=== PATIENT | male | born 1965 | race Caucasian/White ===

== ENCOUNTER 2018-01-18 08:14 | Day surgery (SDC) | payer OTHER ==
[2018-01-16 14:23] VITALS: BMI 54.5
[2018-01-18] MEDS ORDERED: PROPOFOL 20 ML ONE (09:08)
--- NOTE | 2018-01-18 09:12 | HP ---
Satellite [facility] - Chief Complaint Chief Complaint: right knee pain - Past Medical History Allergies/Adverse Reactions: Allergies Allergy/AdvReac Type Severity Reaction Status Date / Time No Known Allergies Allergy Verified 01/18/18 08:36 - Current Medications Current Medications: Home Medications Medication Instructions Recorded Oxycodone HCl/Acetaminophen 1 - 2 tab PO Q6H #30 tab MDD 6 01/18/18 [Percocet 5-325 mg Tablet] Satellite Physical Exam - Physical Examination Vital Signs: Vital Signs Period Temp Pulse Resp BP Sys/Coto Pulse Ox Last 24 Hr 98.0 F 90 20 143/93 96 General Appearance: Well Nourished, Well Developed, Alert & Oriented x3 ENT: Clear Lung: Normal air movement Heart: Regular rate & rhythm Extremities: Other (right knee- + swelling, + ttp ,decr rom, nvi MRI + mt, djd) Neurological: Intact, Alert, Oriented Satellite Impression/Plan - Impression/Plan Impression: right knee internal derangement Operative Procedure: right knee arthroscopy Date to be Performed: 01/18/18
[2018-01-18] MEDS ORDERED: ceFAZolin SODIUM 1 GM VIAL ONE (09:13)
[2018-01-18] MEDS ORDERED: LIDOCAINE 1%/EPI 1:100000 (50 ML MULTI DOSE VIAL) PNB ONE (09:14)
[2018-01-18] MEDS ORDERED: ceFAZolin SODIUM 1 GM VIAL IVPB ONE (09:14)
[2018-01-18] MEDS ORDERED: BUPIVACAINE HCL/PF (5 MG/ML) 30 ML VIAL IJ ONE (09:14)
[2018-01-18] MEDS ORDERED: fentaNYL CITRATE 250 MCG/5 ML VIAL ONE (09:16)
--- NOTE | 2018-01-18 09:59 | OP ---
Operative Note - Note: Operative Date: 01/18/18 ([facility]) Pre-Operative Diagnosis: right knee internal derangement Operation: right knee arthroscopy with debridement chondroplasty [facility] [place] Post-Operative Diagnosis: Same as Pre-op Surgeon: Daniele Capps Anesthesiologist/SALES OFFICE ASSISTANT: Brianna Carrizales Anesthesia: General, Local Specimens Removed: shavings Estimated Blood Loss (mls): 5 Operative Report Dictated: Yes
[2018-01-18] MEDS ORDERED: ONDANSETRON 4 MG/2 ML VIAL IVPUSH PRN (10:03)
[2018-01-18] MEDS ORDERED: oxyCODONE HCL 5 MG TABLET PO PRN ×2 (10:03)
[2018-01-18] MEDS ORDERED: LACTATED RINGERS SOLUTION 1,000 ML IV SCH (10:15)
[2018-01-18] MEDS ORDERED: oxyCODONE HCL 5 MG TABLET ONE (13:23)
[2018-01-18 17:06] VITALS: BP 128/70; PULSE 70; TEMP 97.8
--- NOTE | 2018-01-21 16:18 | PATH ---
Surgical Pathology Report Patient Name: DONNIE DE LA ROSA [facility]. Rec. #: [id number] /Age/Gender: 1965 (Age: 52) / M Account: [id number] Location: [facility] Taken: 01/18/2018 Received: 01/18/2018 Reported: 01/21/2018 Physicians: Daniele Capps M.D. Specimen(s) Received RIGHT KNEE SHAVINGS Clinical History Tear right knee Final Diagnosis RIGHT KNEE SHAVINGS: FRAGMENTS OF SYNOVIAL AND FIBROCARTILAGINOUS TISSUE WITH DEGENERATIVE CHANGE. Electronically Signed Shefali Richards M.D. Gross Description Received in formalin, labeled "right knee shavings," is a 4.5 x 4.0 x 0.4 cm. aggregate of moran-yellow soft tissue fragments. A accounts receivable representative portion is submitted in one cassette. /01/18/2018 saudi01/18/2018
--- NOTE | 2018-01-24 09:20 | OP ---
DATE OF OPERATION: 01/18/2018 PREOPERATIVE DIAGNOSIS: Internal derangement, right knee. POSTOPERATIVE DIAGNOSIS: Internal derangement, right knee. PROCEDURE: Right knee arthroscopy with partial medial meniscectomy and chondroplasty of the medial femoral condyle. SURGICAL ATTENDING: Daniele Capps MD ANESTHESIA: General with endotracheal intubation. POSITION: Supine. CLOSURE: Nylon 4-0. COMPLICATIONS: None. CONDITION: To recovery room in stable condition. DESCRIPTION OF OPERATIVE PROCEDURE: Patient was taken to the operating room on January 18, 2018. General anesthesia with endotracheal intubation was administered by the anesthesiologist. The right lower extremity was prepped and draped in the usual sterile fashion. The medial and lateral portal sites were infiltrated with 1% Xylocaine with epinephrine. Both portals were then made with a 15-blade followed by a blunt trocar. The scope was placed up into the suprapatellar pouch. The knee was then inflated with a cocktail 10 mL of 1% Xylocaine, 10 mL of 0.5% Marcaine, and 20 mL of arthroscopic saline. The medication was allowed to sit in the knee for a minute or two, and then, the procedure was performed. Pouch was visualized to be clean. The medial and lateral gutters were visualized to be clean. The undersurface of the patella was found to be intact. The trochlea had some mild grade 1-2 changes, which was left untouched. With valgus stress on the knee, the medial compartment was entered. The medial meniscus was visualized and probed and found to have a flap tear of the posterior horn. This was debrided back to smooth and stable meniscal tissue with meniscal biter and arthroscopic shaver. The medial femoral condyle was run and found to have a quarter-sized lesion extending from about 30 degrees to 45 degrees, and a loose articular cartilage was debrided using the shaver. The bed was burred to stimulate some bleeding bone. The remaining of the medial femoral condyle articular cartilage was found to be intact. The tibial plateau was found to be intact. At 90 degrees, the ACL was visualized and probed and found to be intact. In the figure 4 position, the lateral compartment of the knee was entered. The lateral meniscus was visualized, probed, found to be intact. The lateral femoral condyle was run and found to be intact as was the lateral tibial plateau. Fluid was drained from the knee. The knee was then inflated with a cocktail of 20 mL of 0.5% Marcaine infused through the arthroscopic trocar. Both portals were then closed using 4-0 nylon. A sterile pressure dressing was placed over the knee. Patient was awakened from anesthesia and transferred to recovery in stable condition. No complications. Estimated blood loss negligible. Nik BRANDT/[id number]
== END 2018-01-18 14:30 | disposition home or self-care (01) ==
LOC: JASU-SURG 08:14
PROVIDERS: ATTEND Orthopaedic Surgery
PROC: 0SBC4ZZ Excision of Right Knee Joint, Percutaneous Endoscopic Approach (ICD-10-PCS; principal; 2018-01-18 09:30)
DX: M23.91 Unspecified internal derangement of right knee (principal)
CPT/HCPCS: 88304-TC; 94760; 97116-GP

== ENCOUNTER 2018-06-03 20:15 | Emergency (ER) | payer OTHER | END 2018-06-04 00:56 | disposition home or self-care (01) | LOC: JER 06-04 00:56 → JERFT 20:15 ==

== ENCOUNTER 2018-11-17 21:39 | Emergency (ER) | payer OTHER ==
--- NOTE | 2018-11-17 22:28 | PDOC ---
History of Present Illness - General Stated Complaint: LEG CRAMPS,HISTORY DVT Time Seen by Provider: 11/17/18 22:03 History Source: Patient Exam Limitations: No Limitations - History of Present Illness Initial Comments: 52 yo M, PMH back surgery in May c/b infection s/p washout and DVT s/p IVC filter, presenting from rehab center w/ L calf pain. His initial back surgery was due to L leg paralysis after a fall. He states that he had his IVC filter removed 2-3 weeks ago at his request. He said he had L calf pain starting night after his rehab session, described as a "tightness". Woke up Sunday night with pain still there and worse, exacerbated by moving his ankle. Feels different than his previous DVT, which felt "like my leg was going to pop ". Has residual L leg weakness. Received 1 dose of Eliquis before being sent over by doctor for US. Denies weakness, LOC, [facility], back pain, tingling, chest pain, back pain, SOB, constipation/diarrhea, fevers/chills. 11/17/18 22:15 11/17/18 22:32 Past History - Past Medical History Allergies/Adverse Reactions: Allergies Allergy/AdvReac Type Severity Reaction Status Date / Time No Known Allergies Allergy Verified 06/03/18 20:34 Home Medications: Ambulatory Orders Oxycodone HCl/Acetaminophen [Percocet 5-325 mg Tablet] 1 - 2 tab PO Q6H #30 tab MDD 6 01/18/18 Gabapentin [Neurontin] 300 mg PO ASDIR 06/03/18 Diazepam [Valium] 5 mg PO Q8H PRN #15 tablet MDD 3 06/04/18 Ibuprofen [Motrin -] 600 mg PO TID PRN #90 tablet MDD 3 06/04/18 Anemia: No Asthma: No Cancer: No Cardiac Disorders: No CVA: No COPD: No CHF: No Dementia: No Diabetes: No GI Disorders: No Disorders: No HTN: No Hypercholesterolemia: No Liver Disease: No Seizures: No Thyroid Disease: No - Suicide/Smoking/Psychosocial Hx Smoking History: Never smoked Hx Alcohol Use: Yes (OCCAS) Drug/Substance Use Hx: No Substance Use Type: None Review of Systems - Review of Systems Constitutional: No: Chills, Diaphoresis, Fever HEENTM: No: Eye Pain, Blurred Vision, Recent change in vision, Double Vision, Tinnitus, Hearing Loss, Throat Pain, Throat Swelling, Difficulty Swallowing, Mouth Swelling Respiratory: No: Cough, Orthopnea, Shortness of Breath Cardiac (ROS): No: Chest Pain, Edema, Lightheadedness, Palpitations ABD/GI: No: Constipated, Diarrhea, Nausea, Vomiting Musculoskeletal: No: Back Pain Neurological: Yes: Pre-Existing Deficit (L leg weakness after fall). No: Headache, Numbness, Paresthesia *Physical Exam - Physical Exam General Appearance: Yes: Nourished, Appropriately Dressed, Obese. No: Apparent Distress HEENT: positive: EOMI, TATUM, Normal ENT Inspection, Normal Voice, Symmetrical, Pharynx Normal Neck: positive: Trachea midline, Normal Thyroid, Supple. negative: Tender, Rigid Respiratory/Chest: positive: Lungs Clear, Normal Breath Sounds. negative: Chest Tender, Respiratory Distress, Accessory Muscle Use Cardiovascular: positive: Regular Rhythm, Regular Rate Gastrointestinal/Abdominal: positive: Normal Bowel Sounds, Soft. negative: Tender, Rebound Musculoskeletal: negative: Normal Inspection Extremity: positive: Calf Tenderness (L side, mild, no edema). negative: Pedal Edema, Swelling Integumentary: positive: Normal Color, Dry, Warm Neurologic: positive: electromechanic II-XII NML intact, Fully Oriented, Alert, Normal Mood/ Affect, Normal Response. negative: Motor Strength 5/5 (L leg 2/5 strength) Medical Decision Making - Medical Decision Making Will get US to r/o DVT. Will also get KUB per PCP to confirm IVC filter removal. 11/17/18 22:31 US reviewed, no DVT. 11/18/18 00:15 KUB reviewed, no IVC filter evident. 11/18/18 00:23 *DC/Admit/Observation/Transfer Diagnosis at time of Disposition: Pain of left calf - Referrals - Patient Instructions Additional Instructions: Your L calf pain is not due to a clot. It is likely to be secondary to the physical rehab. Take over the counter pain medication as needed. Return to the ED if you have increased pain and/or swelling. - Post Discharge Activity
[2018-11-17 22:32] VITALS: BMI 48.3
--- NOTE | 2018-11-18 00:35 | PDOC ---
Documentation entered by Kristina Barnett SCRIBE, acting as scribe for Stephania Fernández MD. Stephania Fernández MD: This documentation has been prepared by the Ericka cochran Brenda, SCRIBE, under my direction and personally reviewed by me in its entirety. I confirm that the documentation accurately reflects all work, treatment, procedures, and medical decision making performed by me. Attending Attestation - Resident Resident Name: [email or web address] - ED Attending Attestation I have performed the following: I have examined & evaluated the patient, The case was reviewed & discussed with the resident, I agree w/resident's findings & plan, Exceptions are as noted - HPI HPI: 11/17/18 23:33 The patient is a 52 year old male, with a significant PMH of DVT s/p IVC filter and morbid obesity, who presents to the emergency department [facility] from [facility] with left calf pain since . The patient reports he had left calf pain, described as tightness since night post rehab session. He notes waking up sunday, with a worsened pain, aggravated by moving the ankle. He pradeep note that it is different than previous DVT. The patient denies weakness, and tingling. Denies chest pain, shortness of breath, headache and dizziness. Denies fever, chills, nausea, vomiting, diarrhea and constipation. Denies dysuria, frequency, urgency and hematuria. Denies any other symptoms. Allergies: NKA Past surgical history: right knee arthroscopy with debridement chondroplasty [facility] [place] back surgery in May c/b infection s/p washout. Initial back surgery was due to left leg paralysis after a fall. Social history: Occasional alcohol use. Denies drug use or illicit drug use. - Physicial Exam PE: 11/17/18 22:44 GENERAL: Well-appearing, well-nourished. No apparent distress. HEENT: Normocephalic, atraumatic. PERRL, EOM intact. CARDIOVASCULAR: Normal S1, S2. Regular rate and rhythm. PULMONARY: Clear to auscultation bilaterally. ABDOMEN: Soft, non-distended, non-tender. EXTREMITIES: Normal ROM in all four extremities. No gross deformities. SKIN: Warm, dry. No rash NEUROLOGICAL: No focal neurological deficits. - Medical Decision Making 11/18/18 00:16 52 yo male sent from [facility] to evaluate the left leg for DVT the duplex doppler of the left leg was NEGATIVE for dvt the pt states that he had his IVC filter removed at his request this May at [facility]. The KUB done this evening did not appear to have IVC filter 11/18/18 00:25 pt d/c back to [facility]
[2018-11-18 02:56] VITALS: BP 118/76; PULSE 80; TEMP 98.6
== END 2018-11-18 02:57 | disposition home or self-care (01) ==
LOC: JER 21:39
DX: M79.662 Pain in left lower leg (principal); Z86.718 Personal history of other venous thrombosis and embolism
CPT/HCPCS: 74018-TC-FY; 93971-TC; 99282-25